=== PATIENT | male | born 1955 | race Caucasian/White ===

== ENCOUNTER 2021-11-26 16:09 | Emergency (ER) | payer MEDICARE, OTHER ==
[2021-11-26 16:20] VITALS: BP 147/96
--- NOTE | 2021-11-26 16:50 | ER.PDOC ---
General Chief Complaint: General Complaint Stated Complaint: GROIN PAIN TRAVEL OUT OF US: No Time seen by MD: 16:45 Source: patient Exam Limitations: no limitations History of Present Illness Initial Comments Right groin pain after lifting a heavy stuff yesterday. By the time I saw patient, he told me that his pain already felt better and he is not having much of pain. He was wondering what happened that his pain felt better. He had a hard time pointing exactly where he was hurting because he could not feel much of the pain. Timing/Duration: 24 hours, gone Severity: mild Associated Symptoms: denies symptoms Allergies: Coded Allergies: No Known Allergies (Unverified , 11/26/21) Past Medical History Medical History: other Surgical History: neck Family History Significant Family History: no pertinent family hx Social History Smoking: greater than 1 pack/day Alcohol Use: heavy Drug Use: marijuana Review of Systems Constitutional: no symptoms reported EENTM: no symptoms reported Respiratory: no symptoms reported Cardiovascular: no symptoms reported Gastrointestinal: see HPI All Other Systems: Reviewed and Negative Physical Exam General Appearance: No Apparent Distress, WD/WN Neck: Non-Tender, Full Range of Motion, Supple, Normal Inspection Respiratory: chest non-tender, lungs clear, normal breath sounds, no respiratory distress, no accessory muscle use CVS: reg rate & rhythm, no murmur, no gallop, pulses nml, nml capillary refill Gastrointestinal: Normal Bowel Sounds, No Organomegaly, No Pulsatile Mass, Other (No tenderness right groin area or swelling appreciated.) Back: Normal Inspection Extremities: Normal Range of Motion, Non-Tender, Normal Inspection, No Pedal Edema Neurologic/Psychiatric: payroll auditor II-XII NML as Tested, No Motor/Sensory Deficits Skin: Normal Color Lymphatic: No Adenopathy Results/Orders Results/Orders Vital Signs Date Time Temp Pulse Resp B/P (MAP) Pulse Ox O2 Delivery O2 Flow Rate FiO2 11/26/21 16:20 98.4 82 18 147/96 (113) 99 Room Air* 0 21 11/26/21 16:20 98.4 82 20 99 11/26/21 16:20 98.4 82 18 ER DEPART Departure Time of Disposition: 16:49 Disposition: 01 HOME / SELF CARE / HOMELESS Impression: Primary Impression: Rt groin pain Additional Impression: Muscle strain Condition: Improved Referrals: GAMA BARRIENTOS MD (PCP) PRIMARY CARE PROVIDER Additional Instructions: Ibuprofen Follow-up with your PCP 1 week Return to ED if worsening or concerns Duration or Time Spent with Pa: 10 min Problem Qualifiers APOLINAR OLEARY MD November 26, 2021 16:50
== END 2021-11-26 16:54 | disposition home or self-care (01) ==
LOC: ER 16:34
DX: S39.011A Strain of muscle, fascia and tendon of abdomen, initial encounter (principal); R10.31 Right lower quadrant pain; F12.90 Cannabis use, unspecified, uncomplicated; F17.210 Nicotine dependence, cigarettes, uncomplicated; X50.0XXA Overexertion from strenuous movement or load, initial encounter; Y93.89 Activity, other specified; Y92.89 Other specified places as the place of occurrence of the external cause; Y99.8 Other external cause status
CPT/HCPCS: 99282

== ENCOUNTER → 2023-12-02 | Outpatient (CLI) | payer OTHER ==
[2023-12-02 16:08] LABS: BILIRUBIN,URINE NEGATIVE (NEGATIVE); LEUKOCYTE ESTERASE ,URINE 2+ (NEGATIVE); NITRATE,URINE NEGATIVE (NEGATIVE); UROBILINOGEN,URINE 0.2 E.U./dL (0.2)
[2023-12-02 16:12] LABS: HEMATOCRIT(ML) 41.8 % (37.0-53.0); HEMOGLOBIN 14.7 g/dL (13.9-16.3); MEAN CORP HGB 32.8 pg (26-34); MEAN CORP HGB CONCENTRATION 35.2 g/dL (33-36.5); MEAN CORP VOLUME 93.3 fL (78-100); RED BLOOD CELL 4.48 10^6/uL (4.50-5.90); WHITE BLOOD CELL 10.8 10^3/uL (4.5-11.0)
[2023-12-02 16:17] LABS: APPEARANCE,URINE CLOUDY; UA COLOR YELLOW
[2023-12-02 16:46] LABS: ANION GAP 16.9; CARBON DIOXIDE 21.1 mmol/L (20.0-32)
[2023-12-02 16:52] LABS: BUN/CREATININE RATIO 16.34 (10.0-20.0); CREATININE SERUM 1.04 mg/dL (0.59-1.40); EST GFR, NON-AA 71.2 (>/=60)
== END | disposition home or self-care (01) ==
LOC: NPLAB 15:00
PROVIDERS: ATTEND Urology
DX: Z01.812 Encounter for preprocedural laboratory examination (principal); R97.20 Elevated prostate specific antigen [PSA]
CPT/HCPCS: 36415; 80048; 81001; 85027; 87086